=== PATIENT | male | born 1995 | race Caucasian/White ===

== ENCOUNTER 2019-10-25 12:53 | Day surgery (SDC) | payer OTHER ==
[2019-10-20 11:55] VITALS: BMI 39.5
[2019-10-25] MEDS ORDERED: PROPOFOL 20 ML ONE (13:22)
[2019-10-25] MEDS ORDERED: MIDAZOLAM HCL 2 MG/2 ML SINGLE DOSE VIAL ONE ×2 (13:22→14:01)
[2019-10-25] MEDS ORDERED: ONDANSETRON 4 MG/2 ML VIAL ONE (13:22)
[2019-10-25] MEDS ORDERED: LIDOCAINE HCL/PF 2% SDV 5ML VIAL ONE (13:41)
[2019-10-25] MEDS ORDERED: ROPIVACAINE HCL 0.5% 30ML VIAL ONE (14:00)
[2019-10-25] MEDS ORDERED: oxyCODONE HCL 5 MG TABLET PO PRN (14:45)
[2019-10-25] MEDS ORDERED: LACTATED RINGERS SOLUTION 1,000 ML IV SCH (14:45)
[2019-10-25] MEDS ORDERED: ONDANSETRON 4 MG/2 ML VIAL IVPUSH PRN (14:45)
[2019-10-25] MEDS ORDERED: DEXAMETHASONE SOD PHOSPHATE 4 MG/1 ML VIAL ONE (14:49)
[2019-10-25] MEDS ORDERED: KETOROLAC TROMETHAMINE 30 MG/1 ML VIAL ONE (14:49)
[2019-10-25] MEDS ORDERED: GUM MASTIC/STORAX/MSAL/ALCOHOL 1 DRP DROPSBTL MC ONE (15:31)
[2019-10-25 16:47] VITALS: TEMP 97.9
[2019-10-25] MEDS ORDERED: ACETAMINOPHEN 325 MG TABLET (FP) ONE (17:00)
[2019-10-25] MEDS ORDERED: ACETAMINOPHEN 325 MG TABLET (FP) PO ONE (17:00)
[2019-10-25 17:32] VITALS: BP 135/80; PULSE 79
== END 2019-10-25 17:32 | disposition home or self-care (01) ==
LOC: FASU 12:53
PROVIDERS: ATTEND Orthopaedic Surgery Hand Surgery
PROC: 0JBF0ZZ Excision of Left Upper Arm Subcutaneous Tissue and Fascia, Open Approach (ICD-10-PCS; 2019-10-25)
PROC: 0RNM0ZZ Release Left Elbow Joint, Open Approach (ICD-10-PCS; principal; 2019-10-25 14:42)
DX: M24.522 Contracture, left elbow (principal); M25.722 Osteophyte, left elbow; M65.9 Synovitis and tenosynovitis, unspecified; M24.022 Loose body in left elbow
CPT/HCPCS: 94760